=== PATIENT | male | born 1965 | race Caucasian/White ===

== ENCOUNTER 2019-04-17 10:33 | Inpatient (IN) | payer MEDICAID, OTHER ==
[~2019-04-17] VITALS: Ht 180.3 cm; Wt 93.6 kg
--- NOTE | 2019-04-17 11:01 | NUR ---
TENZIN AT BEDSIDE
[2019-04-17] MEDS ORDERED: ONDANSETRON 2MG/ML, 2ML ONE (11:09)
[2019-04-17] MEDS ORDERED: HYDROmorphone 2 MG/ML, 1ML ONE ×3 (11:10→14:53)
[2019-04-17] MEDS: HYDROmorphone 2 MG/ML, 1ML IVPush PRN ×2 (11:26→13:21)
[2019-04-17] MEDS ORDERED: SODIUM CHLORIDE 0.9% 1,000ML IVBOLUS ONE (11:30)
[2019-04-17] MEDS ORDERED: ONDANSETRON 2MG/ML, 2ML IVPush ONE (11:30)
--- NOTE | 2019-04-17 11:31 | NUR ---
PT MEDICATED FOR PAIN AND NAUSEA.
[2019-04-17 11:44] LABS: BASOPHILS # (AUTO) 0.02 x10^3/uL (0-0.1); BASOPHILS % (AUTO) 0 % (0-1); EOSINOPHILS # (AUTO) 0.12 x10^3/uL (0-0.4); EOSINOPHILS % (AUTO) 1 % (1-7); LYMPHOCYTES # (AUTO) 2.08 x10^3/uL (1-3.4); LYMPHOCYTES % (AUTO) 24 % (22-44); MD NO; MEAN CORPUSCULAR HGB CONC 31.9 g/dL (33.2-36.2); MEAN CORPUSCULAR VOLUME 81.6 fL (81-97); MEAN PLATELET VOLUME 6.3 fL (7.4-10.4); MONOCYTES # (AUTO) 0.43 x10^3/uL (0.2-0.8); MONOCYTES % (AUTO) 5 % (2-9); NEUTROPHILS # (AUTO) 5.97 x10^3/uL (1.8-6.8); NEUTROPHILS % (AUTO) 69 % (42-75); PLATELET COUNT 435 x10^3/uL (130-400); RED BLOOD COUNT 5.22 x10^6/uL (4.38-5.82); RED CELL DISTRIBUTION WIDTH 18.2 % (9.4-14.8)
[2019-04-17 11:54] LABS: ALBUMIN 3.7 g/dL (3.4-5.0); ANION GAP 5 mmol/L (5-15); CALCIUM 9.5 mg/dL (8.5-10.1); CHLORIDE 108 mmol/L (98-107)
[2019-04-17 11:57] LABS: ALANINE AMINOTRANSFERASE 26 U/L (12-78); ALKALINE PHOSPHATASE 114 U/L (45-117); BILIRUBIN,TOTAL 0.8 mg/dL (0.2-1.0); TOTAL PROTEIN 8.7 g/dL (6.4-8.2)
--- NOTE | 2019-04-17 13:24 | NUR ---
PT MEDICATED AND INFORMED OF POC. PT VERBALIZED UNDERSTANDING.
[2019-04-17] MEDS ORDERED: MIDAZOLAM 1 MG/ML, 2ML IVPush ONE (13:30)
[2019-04-17] MEDS ORDERED: MIDAZOLAM 1 MG/ML, 2ML ONE (14:00)
--- NOTE | 2019-04-17 14:08 | NUR ---
PT IS REFUSING THE NG TUBE AT THIS TIME. POC DISCUSSED AND EDUCATION PROVIDED, PT VERBALIZED UNDERSTANDING.
--- NOTE | 2019-04-17 14:40 | NUR ---
DISCUSSED POC WITH TENZIN, HE IS AWARE PT REFUSED NG. PT REQUESTING MORE PAIN MEDS.
[2019-04-17] MEDS ORDERED: HYDROmorphone 2 MG/ML, 1ML IV ONE (15:00)
--- NOTE | 2019-04-17 15:00 | NUR ---
PT MEDICATED FOR PAIN. NAD. VSS.
--- NOTE | 2019-04-17 15:06 | NUR ---
REPORT GIVEN TO DANIE. THEY ARE WAITING FOR THE ROOM TO BE CLEANED.
[2019-04-17] MEDS ORDERED: ASPI81TA45 PO (15:49)
[2019-04-17 15:51] VITALS: BP 161/93
[2019-04-17] MEDS ORDERED: POLYETHYLENE GLYCOL 17 GM PACKET PO PRN (17:30)
[2019-04-17] MEDS ORDERED: ONDANSETRON 2MG/ML, 2ML IV PRN (17:30)
[2019-04-17] MEDS ORDERED: DIPHENHYDRAMINE 50 MG/ML, 1ML IVPush PRN (17:30)
[2019-04-17] MEDS: MORPHINE SULFATE 4 MG/ML, 1ML IV PRN ×3 (17:41→23:21)
[2019-04-17] MEDS ORDERED: NICOTINE 14MG/24 HR PATCH.TD24 TD SCH (18:00)
[2019-04-17 18:53] VITALS: BP 128/86
[2019-04-18] MEDS: MORPHINE SULFATE 4 MG/ML, 1ML IV PRN ×3 (01:42→09:30)
[2019-04-18 02:05] VITALS: BP 145/87
[2019-04-18 08:27] VITALS: BP 141/93
== END 2019-04-18 11:30 | disposition home or self-care (01) | DRG 394 ==
LOC: ED 10:59 → EDIP 13:13 → 4NOR 15:25
PROVIDERS: ADMIT Colon & Rectal Surgery; ATTEND Colon & Rectal Surgery
DX: K43.5 Parastomal hernia without obstruction or gangrene (principal); K59.39 Other megacolon; Z85.038 Personal history of other malignant neoplasm of large intestine; F17.200 Nicotine dependence, unspecified, uncomplicated; Z88.3 Allergy status to other anti-infective agents; Z88.8 Allergy status to other drugs, medicaments and biological substances
CPT/HCPCS: 36415; 74176; 80053; 83690; 85025; 99285; G0378; J1170; J2405; J2270; J7030

== ENCOUNTER 2019-04-23 16:20 | Inpatient (IN) | payer OTHER ==
[~2019-04-23] VITALS: Ht 180.3 cm; Wt 81.0 kg
[2019-04-24 12:58] VITALS: BP 172/105
== END 2019-04-24 17:57 | disposition home or self-care (01) | DRG 394 ==
LOC: ED 16:42 → EDIP 20:25 → 3NE 21:05
PROVIDERS: ADMIT Internal Medicine; ATTEND Internal Medicine
DX: K43.3 Parastomal hernia with obstruction, without gangrene (principal); C18.9 Malignant neoplasm of colon, unspecified; D64.9 Anemia, unspecified; F11.90 Opioid use, unspecified, uncomplicated; F17.210 Nicotine dependence, cigarettes, uncomplicated; I10 Essential (primary) hypertension; Q85.00 Neurofibromatosis, unspecified; Z80.0 Family history of malignant neoplasm of digestive organs; Z93.2 Ileostomy status; Z76.5 Malingerer [conscious simulation]; Z85.038 Personal history of other malignant neoplasm of large intestine; Z88.8 Allergy status to other drugs, medicaments and biological substances; Z88.6 Allergy status to analgesic agent; Z91.041 Radiographic dye allergy status
CPT/HCPCS: 36415; 74021; 74176; 80053; 83690; 85025; 96374; 96375; 96376; G0378; J2405; J0360; J1200; J2270; J7030